=== PATIENT | female | born 1985 | race Caucasian/White ===

== ENCOUNTER 2024-11-18 20:51 | Emergency (ER) | payer OTHER, SELFPAY ==
[2024-11-18 20:54] VITALS: BP 102/66; BMI 24.9
[2024-11-18] MEDS: TYLENOL 1000 MG PO (21:35)
--- NOTE | 2024-11-18 21:37 | ED.GENMED ---
History of Present Illness
General
Chief Complaint: Head Injury
Source: patient
Time Seen by Provider: 11/18/24 21:08
History of Present Illness
History of Present Illness:
39-year-old female with past medical history of borderline personality disorder, PTSD, bipolar disorder, anxiety/ADHD, asthma presenting to the ER for evaluation from [facility] after reportedly falling and striking her head
against a concrete wall 3 days ago, since that time has had headache, nausea, word finding difficulty and generally feeling unwell since that time. She denies any known history of other head injuries. Questionable loss of consciousness. History
otherwise somewhat limited. [employer] officers who accompanied the patient did not witness the event.
Past History
Past History
ED Past Medical History: Asthma and Psychiatric
ED Past Surgical History: Tonsilectomy
Social History
Tobacco: Non-smoker
Alcohol: None
Drug: None
Living: custodial
Review of Systems
Review of Systems
All Other Systems: ROS reviewed and negative except as documented in HPI and ROS
Phy Exam
Physical Exam
Physical Exam:
GENERAL: Initially sleeping when I entered the room however easily arousable to voice, in no apparent distress
EYE: conjunctiva clear, pupils 4 mm, PERRL, EOMI
Head: Normocephalic atraumatic
NECK: Supple, no midline tenderness
ENT: mmm. No dental fractures, uvula midline and airway is patent
LUNGS: no acute respiratory distress
NEUROLOGICAL: Alert and oriented x 3
SKIN: Warm and dry, skin intact.
MUSCULOSKELETAL: well perfused. Moves all extremities
PSYCH: Normal and appropriate interaction.
Scores
Heart Failure Risk
Heart Failure Risk Score: Not Applicable
Heart Score for Chest Pain Patients
STEMI patient?: Not applicable
Withdrawal Assessment of Alcohol
Withdrawal Assessment Completed?: Not applicable
Course
Orders/Labs/Results
Orders:
Orders
11/18/24 21:22
CT Head W/o Iv Contrast Urgent
Comment:
Reason For Exam: fall, headache, vomiting
11/18/24 21:31
Acetaminophen [Tylenol] 1,000 mg PO NOW STA
Vital Signs
Initial and Last Documented VS:
Initial Vital Signs
Temp Pulse Resp BP Pulse Ox
97.8 F 67 18 102/66 99
11/18/24 20:54 11/18/24 20:54 11/18/24 20:54 11/18/24 20:54 11/18/24 20:54
Last Documented Vital Signs
Temp Pulse Resp BP Pulse Ox
97.8 F 67 16 86/51 98
11/18/24 20:54 11/18/24 23:13 11/18/24 23:13 11/18/24 23:24 11/18/24 23:13
MDM/Problems Addressed
Differential Diagnosis Includes:
Contusion, concussion, less concern for intracranial bleeding
MDM/Problems Addressed:
39-year-old female presenting to the ER from [facility] for evaluation following a head injury. Patient with symptoms suggestive of concussion however given continuous symptoms, questionable LOC and vomiting will obtain CT
scan to further evaluate. Patient otherwise hemodynamically and neurologically intact. Disposition pending
*Radiology
Radiology exam reviewed: radiology read reviewed
*Pulse Oximetry
Patient hypoxic: no
*Critical Care Note
Total Time (30-74mins, 75-104mins- exclusive of procedures): Not Applicable
Patient Management
Escalation/DeEscalation of care consider admission/obs:
CT head without any acute intracranial pathologies. Stable for incarceration.
ED Attending Note
-
Portions of this chart may have been created with voice recognition software.� Occasional wrong word or��sound alike� substitutions may have occurred due to the inherent limitations of voice recognition software.
Discharge Plan
Departure
Patient Disposition: Home (Routine Discharge)
Date of Disposition: 11/18/24
Time of Disposition: 23:11
Patient with high blood pressure during this ER visit?: No
Discharge Problem:
Head injury
Instructions: Head Injury in Adults (DC)
Referrals:
[facility] [Family Provider] -
Activity Restrictions/Additional Instructions:
Patient is medically cleared for incarceration
Interventions
Interventions:
*Risk Screen - Suicide Last Done: 11/18/24 20:54
*General Assessment Last Done: 11/18/24 20:54
*Neglect/Abuse Screening Last Done: 11/18/24 20:54
*ED- Fall Risk Assessment Last Done: 11/18/24 20:54
*ED COVID-19 Vaccine History Last Done: 11/18/24 21:00
*Nursing Disposition Last Done: 11/18/24 23:28
ED- Neurological Assessment Last Done: 11/18/24 22:22
ED-Skin Assessment Last Done: 11/18/24 22:22
Discharge Date and Time
Discharge Date/Time: 11/18/24 23:30
Print Language: PALAUAN
[2024-11-18 23:24] VITALS: BP 86/51
== END 2024-11-18 23:30 ==
LOC: EMR 20:51
PROVIDERS: EMERGENCY PHYSICIAN Emergency Medicine
DX: S09.90XA Unspecified injury of head, initial encounter (principal); W19.XXXA Unspecified fall, initial encounter; J45.909 Unspecified asthma, uncomplicated
CPT/HCPCS: 99284; 70450